=== PATIENT | female | born 1955 | race Caucasian/White ===

== ENCOUNTER → 2017-06-20 | Outpatient (CLI) | payer OTHER ==
--- NOTE | 2017-06-20 21:35 | CT ---
EXAMINATION TYPE: CT chest wo con DATE OF EXAM: 06/20/2017 COMPARISON: NONE HISTORY: Patient complains of double vision. Rule out myasthenia gravis. CT DLP: 659 mGycm. Automated Exposure Control for Dose Reduction was Utilized. TECHNIQUE: CT scan of the thorax is performed without IV contrast. FINDINGS: LUNGS: There is limited right greater than left bibasilar linear scarring and/or atelectasis otherwis e lungs are clear. There is no suspicious parenchymal nodule or mass identified. There is no pleural effusion or pneumothorax seen bilaterally. The tracheobronchial tree is patent. MEDIASTINUM: Lack of IV contrast is noted to limit evaluation for mediastinal and especially hilar ad enopathy. There are no definitive greater than 1 cm hilar or mediastinal lymph nodes. There are prom inent but subcentimeter prevascular lymph nodes. No cardiomegaly or pericardial effusion is seen. Mil d coronary artery calcification first diagonal branch is noted on axial image 26. Main pulmonary ronn ry measures 3.4 cm diameter next image 23. Adjacent ascending aorta measures 3.[address] f indings suggestive of underlying pulmonary artery hypertension. No suspicious anterior superior media stinal mass is seen to suggest thymoma. Normal fat is present at this level. Thyroid gland is normal in size, there are 3 calcified nodules right thyroid lobe measuring up to 1.1 cm in long axis. OTHER: Osseous structures are demineralized. Slight S-shaped scoliosis is present. There is hemangio ma involving right T11 vertebra. There is multilevel spurring and disc space narrowing throughout the visualized spine. There is mild chronic compression type fracture deformity at T5 level. IMPRESSION: No suspicious anterior superior mediastinal mass to suggest thymoma.
== END | disposition home or self-care (01) ==
LOC: RADCTMAIN 19:26
PROVIDERS: ATTEND Psychiatry & Neurology Neurology
DX: G70.01 Myasthenia gravis with (acute) exacerbation (principal)
CPT/HCPCS: 71250

== ENCOUNTER → 2017-08-15 | Outpatient (CLI) | payer BC ==
--- NOTE | 2017-08-16 08:32 | MM ---
Reason for exam: screening (asymptomatic). Last mammogram was performed 1 year and 2 months ago. History: Patient is postmenopausal and had first child at age 33. Physical Findings: A clinical breast exam by your physician is recommended on an annual basis and results should be correlated with mammographic findings. MG Screening Mammo w CAD Bilateral CC, MLO, and XCCL view(s) were taken. Prior study comparison: June 24, 2016, bilateral MG screening mammo w CAD. June 23, 2015, bilateral MG screening mammo w CAD. May 29, 2014, bilateral MG screening mammo w CAD. There are scattered fibroglandular densities. There are benign appearing round grouped bilateral calcifications. There is no discrete abnormality. ASSESSMENT: Benign, BI-RAD 2 RECOMMENDATION: Routine screening mammogram of both breasts in 1 year.
== END | disposition home or self-care (01) ==
LOC: RADMAMWWP 07:36
PROVIDERS: ATTEND Obstetrics & Gynecology
DX: Z12.31 Encounter for screening mammogram for malignant neoplasm of breast (principal)
CPT/HCPCS: 77067

== ENCOUNTER → 2017-08-15 | Outpatient (CLI) | payer BC ==
[2017-08-15 09:17] LABS: Blood Urea Nitrogen 23 mg/dL (7-17)
== END | disposition home or self-care (01) ==
LOC: LABWHC1 08:19
PROVIDERS: ATTEND Psychiatry & Neurology Neurology
DX: H46.9 Unspecified optic neuritis (principal); H53.2 Diplopia; M54.2 Cervicalgia
CPT/HCPCS: 36415; 82565; 84520

== ENCOUNTER → 2017-08-15 | Outpatient (CLI) | payer BC ==
--- NOTE | 2017-08-15 09:19 | BD ---
EXAMINATION TYPE: MG DEXA axial skeleton. DATE OF EXAM: 08/15/2017 CLINICAL HISTORY: M85.80 OTHER SPECIFIED DISORDERS OF BONE Height: 61.75 Weight: 280 FRAX RISK QUESTIONS: Alcohol (3 or more units per day): no Family History (Parent hip fracture): mother fractured her pelvis Glucocorticoids (More than 3mos): no (Ex: prednisone, prednisolone, methylprednisolone, dexamethasone, and hydrocortisone). History of Fracture in Adulthood: no Secondary Osteoporosis: 1. Type 1 Diabetes: no, type II 2. Hyperthyroidism: unsure 3. Menopause before 45: no 4. Malnutrition: no 5. Chronic liver disease: no Rheumatoid Arthritis: no Current Tobacco Use: no RISK FACTORS HISTORY OF: Family History of Osteoporosis: unsure Active: yes Diet low in dairy products/other sources of calcium: no Postmenopausal woman: yes Take estrogen and/or progesterone medications: no Lost more than 2 inches in height since high school: no Frequent falls: no Poor Health: no Hyperparathyroidism: no Adrenal Insufficiency: no MEDICATIONS: Prednisone or other steroids: yes How Long: treatment last week & this week Thyroid Medications: yes Which medication: Levothyroxine How Long: over 5 years Osteoporosis Medications: no Additional Medications: steroid infusion due to vision problem...2 treatments , injections for diabet es EXAM MEASUREMENTS: Bone mineral densitometry was performed using the [employer] System. Bone mineral density as measured about the Lumbar spine is: ----- L1-L4(G/cm2): 1.175 T Score Values are as follows: ----- L2: 0.7 ----- L3: 0.2 ----- L4: -1.6 ----- L1-L4: 0.0 Bone mineral density BASELINE Bone mineral density about the R hip (g/cm2): 0.905 Bone mineral density about the L hip (g/cm2): 0.928 T Score values are as follows: -----R Neck: -1.0 -----L Neck: -0.8 -----R Total: -0.3 -----L Total: -0.4 Bone mineral density BASELINE IMPRESSION: No evidence for osteoporosis or osteopenia. NOTE: T-SCORE=SD OF THE YOUNG ADULT MEAN.
== END | disposition home or self-care (01) ==
LOC: RADBDWWP 07:39
PROVIDERS: ATTEND Internal Medicine
DX: M85.80 Other specified disorders of bone density and structure, unspecified site (principal)
CPT/HCPCS: 77080

== ENCOUNTER → 2017-08-23 | Outpatient (CLI) | payer BC ==
--- NOTE | 2017-08-23 14:19 | MR ---
EXAMINATION TYPE: MR brain/cspine wo/w DATE OF EXAM: 08/23/2017 COMPARISON: NONE HISTORY: Optic neuritis / Diplopia / Cervicalgia all per order. Possible multiple sclerosis with doub le vision for 6 months per patient. TECHNIQUE: Multiplanar, multisequence images of the cervical spine, brain and brainstem are all performed withou t and with IV contrast, utilizing 13 mL intravenous Gadavist gadolinium contrast is administered intr avenously. Demyelinating disease protocol with additional Sagittal Flair sequence of brain and brain stem and PD sagittal sequence of cervical spine all performed. FINDINGS: BRAIN: T2 Lesions Present : Yes Approximate Number of Lesions: Approximately 10-15 Locations Identified : Scattered deep and periventricular. No infratentorial lesions. Size of Reference Lesion(s): 1. 0.6 cm x 0.5 cm x 0.5 cm on axial image 20 and sagittal image 25 right frontal coronal radiata le som. Enhancing Lesion(s) Present: No T1 Hypointense Lesion(s) Present: No Change from Prior: N/A Diffusion weighted images demonstrate no evidence of a recent infarct or other diffusion abnormality. There is no worrisome extra-axial fluid collection. The ventricular system and cisternal spaces ar e normal in size and appearance. The brain volume is age appropriate. Midline structures demonstrate normal morphology. Suprasellar cistern is maintained. The craniocervi jus junction appears within normal limits. Post contrast images demonstrate no abnormal enhancement. There is tortuous course to the distal left vertebral artery. The dural venous sinuses appear patent . The globes are somewhat distorted by artifact. No definitive suspicious enhancement along course of optic nerves is seen. Visualized portion of paranasal sinuses is clear. IMPRESSION: Mild nonspecific white matter changes as detailed above. No suspicious enhancing lesions are seen. C-SPINE: FINDINGS: Coronal images show slight levoconvex scoliotic curvature centered in the upper thoracic sp ine. Sagittal images of the cervical spine show the craniocervical junction to appear within normal l imits. The cervical and upper thoracic spinal cord is normal in course, caliber, and signal. Verteb ral alignment is satisfactory on sagittal images. The vertebral body heights are normal. There is mo derate to advanced disc space narrowing C5-C6 level and mild to moderate disc space narrowing C4-C5 l evel . Small posterior disc herniations are seen at these levels on sagittal images. Note is made of mild to moderate superior plate height loss T4 level without suspicious edema presumed chronic and sm all hemangioma at superior T3 vertebra. Mild to moderate anterior spurring mid to lower cervical spin e is present. No suspicious enhancement is identified. Axial images show the C2-C3 and C3-C4 levels to appear within normal limits. Axial images at C4-C5 level show broad-based right paracentral disc protrusion effacing anterolateral thecal sac, bilateral neural foramina are patent. Axial images at C5-C6 level show broad-based posterior disc protrusion effacing anterior thecal sac w ith asymmetric mild left-sided neural foraminal narrowing due to marginal spur disc complex. Right-si ded neural foramen is patent. Axial images at C6-C7 and C7-T1 levels are felt within normal limits. There are some tortuous medial course to the carotid arteries noted bilaterally. IMPRESSION: Some multilevel degenerative changes most prominent in the mid cervical spine as detailed above. No abnormal cord signal or enhancement is noted.
== END ==
LOC: RADMRIMAIN 12:47
PROVIDERS: ATTEND Psychiatry & Neurology Neurology
DX: H46.9 Unspecified optic neuritis (principal); H53.2 Diplopia; M54.2 Cervicalgia; M50.321 Other cervical disc degeneration at C4-C5 level
CPT/HCPCS: 70553; 72156; A9581

== ENCOUNTER 2017-09-11 10:19 | Emergency (ER) | payer BC ==
[2017-09-11 10:53] LABS: Glucose,Whole Blood 98 mg/dL (75-99)
--- NOTE | 2017-09-11 11:07 | ED ---
Neuro HPI - General Chief Complaint: Neuro Symptoms/Deficit Stated Complaint: slurred speech Time Seen by Provider: 09/11/17 10:32 Source: patient Mode of arrival: ambulatory Limitations: no limitations - History of Present Illness Is the patient presenting with stroke symptoms?: No Initial Comments: This is a 62-year-old female with a history of myasthenia gravis who presents emergency department for slurred speech that has been intermittent for the last couple of weeks. The patient states that the slurred speech seems to be made worse throughout the day as she has been speaking more and better after she rests. She states that feels similar to when she was diagnosed with myasthenia gravis back in the summer of 2016. She states that that that time she was having intermittent double vision. She was started on Mestinon which mildly improved her symptoms however recently underwent a weeks worth of IV steroid infusions which completely resolved her symptoms. She states that she has no ocular complaints at this time. States that she just had slurred speech intermittently. She called her neurologist yesterday and left a message. When they found the message this morning and hurt her slurred speech they advised to come to the emergency department. Patient states that she does not have slurred speech currently. She denies any focal weakness in her arms or legs. No focal numbness. Denies any other acute complaints at this time. - Related Data Home Medications: Home Medications Medication Instructions Recorded Confirmed Aspirin EC [Ecotrin] 81 mg PO HS 11/12/15 09/11/17 Multivitamins, Thera [Multivitamin] 2 tab PO DAILY 11/12/15 09/11/17 Losartan Potassium 100 mg PO DAILY 11/13/15 09/11/17 Lysine 1,000 mg PO DAILY 11/13/15 09/11/17 Methylsulfonylmethane [MSM] 5,000 mg PO DAILY 11/13/15 09/11/17 Pioglitazone [Actos] 30 mg PO DAILY 11/13/15 09/11/17 metFORMIN HCL [Glucophage] 1,000 mg PO HS 11/13/15 09/11/17 Garlic Odorless 1000mg 5,000 mg PO DAILY 09/11/17 09/11/17 Glimepiride [Amaryl] 2 mg PO AC-BID 09/11/17 09/11/17 Insulin Glargine,Hum.rec.anlog 50 unit SQ HS 09/11/17 09/11/17 [Lantus Solostar] Levothyroxine Sodium [Synthroid] 25 mcg PO DAILY 09/11/17 09/11/17 Pyridostigmine [place] [Mestinon] 60 mg PO TID 09/11/17 09/11/17 Pyridostigmine [place] [Mestinon] 180 mg PO HS 09/11/17 09/11/17 Super Biotin 5000mcg 5,000 mcg PO DAILY 09/11/17 09/11/17 Super C-1000 Complex 1 tab PO DAILY 09/11/17 09/11/17 Allergies/Adverse Reactions: Allergies Allergy/AdvReac Type Severity Reaction Status Date / Time No Known Allergies Allergy Verified 09/11/17 11:10 Review of Systems ROS Statement: Those systems with pertinent positive or pertinent negative responses have been documented in the HPI. ROS Other: All systems not noted in ROS Statement are negative. General Exam - General Exam Comments Initial Comments: Constitutional: Awake alert Appears comfortable Head: Normocephalic atraumatic Eyes: no conjunctival injection No scleral icterus EOMI Neck: No JVD Supple Heart: Regular rate rhythm normal S1-S2 no murmurs Lungs: Clear to auscultation bilaterally No wheezing No rales Abdomen: Soft nondistended nontender Extremities: Non edematous DP pulses intact Radial pulses intact Neuro: A&Ox3, cranial nerves II through XII are grossly intact, 5 out of 5 strength in upper and lower extremities bilaterally, sensation intact to light touch in all extremities, no ataxia with finger-nose or heel to tyler testing No focal neurologic deficits Psych: Appropriate mood and affect Limitations: no limitations Stroke MDM - Lab Data Result diagrams: 09/11/17 11:00 09/11/17 11:00 Lab Results 09/11/17 09/11/17 09/11/17 Range/Units 10:47 11:00 11:00 WBC 5.1 (3.8-10.6) k/uL RBC 4.27 (3.80-5.40) m/uL Hgb 12.5 (11.4-16.0) gm/dL Hct 38.9 (34.0-46.0) % MCV 91.1 (80.0-100.0) fL MCH 29.3 (25.0-35.0) pg MCHC 32.2 (31.0-37.0) g/dL RDW 14.0 (11.5-15.5) % Plt Count 243 (150-450) k/uL Neutrophils % 70 % Lymphocytes % 14 % Monocytes % 7 % Eosinophils % 5 % Basophils % 0 % Neutrophils # 3.6 (1.3-7.7) k/uL Lymphocytes # 0.7 L (1.0-4.8) k/uL Monocytes # 0.4 (0-1.0) k/uL Eosinophils # 0.2 (0-0.7) k/uL Basophils # 0.0 (0-0.2) k/uL PT (9.0-12.0) sec INR (<1.2) APTT (22.0-30.0) sec Sodium 145 (137-145) mmol/L Potassium 4.1 (3.5-5.1) mmol/L Chloride 112 H (98-107) mmol/L Carbon Dioxide 26 (22-30) mmol/L Anion Gap 7 mmol/L BUN 14 (7-17) mg/dL Creatinine 0.60 (0.52-1.04) mg/dL Est GFR (MDRD) Af Amer >60 (>60 ml/min/1.73 sqM) Est GFR (MDRD) Non-Af >60 (>60 ml/min/1.73 sqM) Glucose 85 (74-99) mg/dL POC Glucose (mg/dL) 98 (75-99) mg/dL POC Glu Rectifying Attendant ID McDaid, Mohini Calcium 9.3 (8.4-10.2) mg/dL Total Bilirubin 0.4 (0.2-1.3) mg/dL AST 17 (14-36) U/L ALT 28 (9-52) U/L Alkaline Phosphatase 53 (38-126) U/L Total Protein 6.2 L (6.3-8.2) g/dL Albumin 3.5 (3.5-5.0) g/dL 09/11/17 Range/Units 11:00 WBC (3.8-10.6) k/uL RBC (3.80-5.40) m/uL Hgb (11.4-16.0) gm/dL Hct (34.0-46.0) % MCV (80.0-100.0) fL MCH (25.0-35.0) pg MCHC (31.0-37.0) g/dL RDW (11.5-15.5) % Plt Count (150-450) k/uL Neutrophils % % Lymphocytes % % Monocytes % % Eosinophils % % Basophils % % Neutrophils # (1.3-7.7) k/uL Lymphocytes # (1.0-4.8) k/uL Monocytes # (0-1.0) k/uL Eosinophils # (0-0.7) k/uL Basophils # (0-0.2) k/uL PT 10.3 (9.0-12.0) sec INR 1.0 (<1.2) APTT 22.4 (22.0-30.0) sec Sodium (137-145) mmol/L Potassium (3.5-5.1) mmol/L Chloride (98-107) mmol/L Carbon Dioxide (22-30) mmol/L Anion Gap mmol/L BUN (7-17) mg/dL Creatinine (0.52-1.04) mg/dL Est GFR (MDRD) Af Amer (>60 ml/min/1.73 sqM) Est GFR (MDRD) Non-Af (>60 ml/min/1.73 sqM) Glucose (74-99) mg/dL POC Glucose (mg/dL) (75-99) mg/dL POC Glu Rectifying Attendant ID Calcium (8.4-10.2) mg/dL Total Bilirubin (0.2-1.3) mg/dL AST (14-36) U/L ALT (9-52) U/L Alkaline Phosphatase (38-126) U/L Total Protein (6.3-8.2) g/dL Albumin (3.5-5.0) g/dL - Medical Decision Making This is a 62-year-old female who presents emergency department for intermittent episodes of slurred speech. She was evaluated with CT which was unremarkable. Labwork was unremarkable. I spoke with Dr. Quinones who is her neurologist and he suspects that this is worsening of her myasthenia gravis. He recommended outpatient IVIG infusions. I told the patient to call the office to get the set up. She stated that she understood and agreed. Told to return if she had any worsening symptoms especially respiratory symptoms. All questions were answered. 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 Past Anesthesia/Blood Transfusion Reactions: No Reported Reaction Past Psychological History: No Psychological Hx Reported Smoking Status: Never smoker Past Alcohol Use History: Rare Past Drug Use History: None Reported - Past Family History Mother Family Medical History: No Reported History Course Vital Signs 09/11/17 09/11/17 09/11/17 10:25 10:56 13:04 Temperature 97.7 F 98.2 F Pulse Rate 86 75 77 Respiratory 18 18 16 Rate Blood Pressure 150/75 137/64 142/66 O2 Sat by Pulse 97 96 Oximetry - Reevaluation(s) Reevaluation #1: 09/11/17 11:07 EKG showing normal sinus rhythm with a rate of 72. No abnormal 7 changes or T- wave inversions. QTC is 400. Other intervals normal. No ectopy. Disposition Clinical Impression: Myasthenia gravis Disposition: HOME SELF-CARE Condition: Stable Instructions: Myasthenia Gravis (ED) Additional Instructions: Call Dr. Quinones's office to set up IVIG infusions. Referrals: Fidencio Guerrero MD [Primary Care Provider] - 1-2 days Eligio Quinones MD [STAFF PHYSICIAN] - 1-2 days
[2017-09-11 11:31] LABS: Basophils % (A) 0 %; Eosinophils # (A) 0.2 k/uL (0-0.7); Eosinophils % (A) 5 %; HCT 38.9 % (34.0-46.0); HGB 12.5 gm/dL (11.4-16.0); Lymphocytes # (A) 0.7 k/uL (1.0-4.8); Lymphocytes % (A) 14 %; MCH 29.3 pg (25.0-35.0); MCHC 32.2 g/dL (31.0-37.0); MCV 91.1 fL (80.0-100.0); Mean Platelet Volume 6.8; Monocytes # (A) 0.4 k/uL (0-1.0); Monocytes % (A) 7 %; Neutrophils # (A) 3.6 k/uL (1.3-7.7); Neutrophils % (A) 70 %; Platelet Count 243 k/uL (150-450); RBC 4.27 m/uL (3.80-5.40); WBC 5.1 k/uL (3.8-10.6)
--- NOTE | 2017-09-11 11:46 | CT ---
EXAMINATION TYPE: CT brain wo con DATE OF EXAM: 09/11/2017 HISTORY: Patient complains of intermittent episodes of slurred speech. CT DLP: 742.7 mGycm. Automated Exposure Control for Dose Reduction was Utilized. TECHNIQUE: CT scan of the head is performed without contrast. COMPARISON: MRI brain August 23, 2017. FINDINGS: There is no acute intracranial hemorrhage or midline shift identified. Ventricles and sul ci are normal in size for patient's age. There is low-attenuation in the periventricular white matter consistent with chronic small vessel ischemic change. The globes are intact and the visualized sinu ses are clear. IMPRESSION: No acute intracranial hemorrhage or midline shift. There is mild nonspecific white fely er changes presumed on basis of product of chronic small vessel ischemic change redemonstrated.
[2017-09-11 11:53] LABS: ALT 28 U/L (9-52); AST 17 U/L (14-36); Albumin 3.5 g/dL (3.5-5.0); Alkaline Phosphatase 53 U/L (38-126); Anion Gap 7 mmol/L; Blood Urea Nitrogen 14 mg/dL (7-17); Calcium 9.3 mg/dL (8.4-10.2); Carbon Dioxide 26 mmol/L (22-30); Chloride 112 mmol/L (98-107); Glucose 85 mg/dL (74-99); Potassium 4.1 mmol/L (3.5-5.1); Sodium 145 mmol/L (137-145); Total Bilirubin 0.4 mg/dL (0.2-1.3); Total Protein 6.2 g/dL (6.3-8.2)
[2017-09-11 12:18] LABS: Partial Thromboplastin Time 22.4 sec (22.0-30.0); Prothrombin Time 10.3 sec (9.0-12.0)
[2017-09-11 13:04] VITALS: BP 142/66; PULSE 77; RESP 16; TEMP 98.2
== END 2017-09-11 13:04 | disposition home or self-care (01) ==
LOC: EC 10:19
DX: G70.00 Myasthenia gravis without (acute) exacerbation (principal); E11.9 Type 2 diabetes mellitus without complications; E07.9 Disorder of thyroid, unspecified; Z79.84 Long term (current) use of oral hypoglycemic drugs; Z79.4 Long term (current) use of insulin; Z79.82 Long term (current) use of aspirin; Z79.899 Other long term (current) drug therapy
CPT/HCPCS: 36415; 70450; 80053; 85025; 85610; 85730; 93005; 99284

== ENCOUNTER 2018-07-15 12:16 | Emergency (ER) | payer BC ==
[2018-07-15 12:39] VITALS: BP 152/80; RESP 18; TEMP 98.3
[2018-07-15] MEDS ORDERED: IPRATROPIUM-ALBUTEROL 3 ML NEB INHALATION STA (12:49)
--- NOTE | 2018-07-15 12:53 | ED ---
General Adult HPI - General Chief complaint: Upper Respiratory Infection Stated complaint: Congestion, Wheezing Time Seen by Provider: 07/15/18 12:35 Source: patient, RN notes reviewed Mode of arrival: ambulatory Limitations: no limitations - History of Present Illness Initial comments: This is a 62-year-old female presents emergency Department complaining of wheezing. Patient states over the last few days she's been coughing and coughing up quite a bit of sputum. Patient states today she noticed the wheezing so she's decided come to the emergency department to be evaluated. Patient does have past medical history significant for myasthenia gravis and diabetes. Patient denies any fever or chills. Patient denies any chest pain or palpitations. Patient denies any abdominal pain patient denies nausea vomiting diarrhea. Patient denies any muscle weakness or visual disturbance. Patient denies lightheadedness dizziness or near syncopal episode. - Related Data Home Medications Medication Instructions Recorded Confirmed Multivitamins, Thera [Multivitamin] 2 tab PO DAILY 11/12/15 07/15/18 Lysine 1,000 mg PO DAILY 11/13/15 07/15/18 Methylsulfonylmethane [MSM] 5,000 mg PO DAILY 11/13/15 07/15/18 metFORMIN HCL [Glucophage] 1,000 mg PO HS 11/13/15 07/15/18 Garlic Odorless 1000mg 5,000 mg PO DAILY 09/11/17 07/15/18 Glimepiride [Amaryl] 2 mg PO BID 09/11/17 07/15/18 Levothyroxine Sodium [Synthroid] 25 mcg PO DAILY 09/11/17 07/15/18 Super Biotin 5000mcg 5,000 mcg PO DAILY 09/11/17 07/15/18 Super C-1000 Complex 1 tab PO DAILY 09/11/17 07/15/18 Benzonatate [Benzonatate [place]] 200 mg PO TID PRN 07/15/18 07/15/18 Cholecalciferol (Vitamin D3) 2,000 unit PO DAILY 07/15/18 07/15/18 [Vitamin D3] Losartan Potassium 100 mg PO DAILY 07/15/18 07/15/18 Mycophenolate Mofetil [Cellcept] 1,000 mg PO BID 07/15/18 07/15/18 Ranitidine HCl [Zantac] 150 mg PO BID 07/15/18 07/15/18 predniSONE 5 mg PO QAM 07/15/18 07/15/18 predniSONE 10 mg PO QAM 07/15/18 07/15/18 Previous Rx's Medication Instructions Recorded Albuterol Inhaler [Ventolin Hfa 1 - 2 puff INHALATION Q6HR PRN #2 07/15/18 Inhaler] puff Azithromycin [Zithromax Tri-Genaro] 500 mg PO DAILY #3 tab 07/15/18 Allergies Allergy/AdvReac Type Severity Reaction Status Date / Time No Known Allergies Allergy Verified 07/15/18 13:00 Review of Systems ROS Statement: Those systems with pertinent positive or pertinent negative responses have been documented in the HPI. ROS Other: All systems not noted in ROS Statement are negative. 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 Patient is nontoxic and well- hydrated and is in mild distress. ENT: Neck is soft and supple. No significant lymphadenopathy is noted. Oropharynx is clear. Moist mucous membranes. Neck has full range of motion without eliciting any pain. EYES: The sclera were anicteric and conjunctiva were pink and moist. Extraocular movements were intact and pupils were equal round and reactive to light. Eyelids were unremarkable. PULMONARY: Patient has extra wheezing diffusely. CARDIOVASCULAR: There is a regular rate and rhythm without any murmurs gallops or rubs. SKIN: Skin is clear with no lesions or rashes and otherwise unremarkable. NEUROLOGIC: Patient is alert and oriented x3. Cranial nerves II through XII are grossly intact. Motor and sensory are also intact. Normal speech, volume and content. Symmetrical smile. MUSCULOSKELETAL: Normal extremities with adequate strength and full range of motion. LYMPHATICS: No significant lymphadenopathy is noted PSYCHIATRIC: Normal psychiatric evaluation. Limitations: no limitations Course Vital Signs 07/15/18 07/15/18 07/15/18 12:35 13:15 13:24 Temperature 98.3 F Pulse Rate 100 100 108 H Respiratory 18 Rate Blood Pressure 152/80 O2 Sat by Pulse 95 Oximetry Medical Decision Making - Medical Decision Making Patient's chest x-ray shows a new right lower lobe infiltrate. I started the patient on Rocephin emergency department I sent the patient home on Zithromax. Disposition Clinical Impression: Pneumonia, Acute bronchospasm Disposition: HOME SELF-CARE Condition: Good Prescriptions: Albuterol Inhaler [Ventolin Hfa Inhaler] 1 - 2 puff INHALATION Q6HR PRN #2 puff PRN Reason: Difficulty breathing Azithromycin [Zithromax Tri-Genaro] 500 mg PO DAILY #3 tab Is patient prescribed a controlled substance at d/c from ED?: No Referrals: Fidencio Guerrero MD [Primary Care Provider] - 1-2 days Time of Disposition: 13:58
[2018-07-15 13:24] VITALS: PULSE 108
--- NOTE | 2018-07-15 13:46 | XR ---
EXAMINATION TYPE: XR chest 2V DATE OF EXAM: 07/15/2018 COMPARISON: CT chest June 20, 2017 HISTORY: Cough and difficulty breathing for 2 days. TECHNIQUE: Frontal and lateral views of the chest are obtained. FINDINGS: There is right basilar opacity. Left lung is clear. No pleural effusion or pneumothorax i s seen bilaterally The cardiac silhouette size is stable and upper limits of normal. Multilevel spurr ing in the mid to lower thoracic spine is redemonstrated. IMPRESSION: New right basilar atelectasis and/or infiltrate.
[2018-07-15] MEDS ORDERED: cefTRIAXone 1,000 MG VIAL (IM USE) IM STA ×2 (13:53→14:37)
== END 2018-07-15 14:46 | disposition home or self-care (01) ==
LOC: EC 12:16
DX: J18.9 Pneumonia, unspecified organism (principal); J98.01 Acute bronchospasm; E11.9 Type 2 diabetes mellitus without complications; G70.00 Myasthenia gravis without (acute) exacerbation; Z79.52 Long term (current) use of systemic steroids; Z79.84 Long term (current) use of oral hypoglycemic drugs; Z79.899 Other long term (current) drug therapy; Z53.8 Procedure and treatment not carried out for other reasons
CPT/HCPCS: 94640; 71046; 99283; 96372; J0696

== ENCOUNTER → 2018-08-16 | Outpatient (CLI) | payer BC ==
--- NOTE | 2018-08-19 12:45 | MM ---
Reason for exam: screening (asymptomatic). Last mammogram was performed 1 year ago. History: Patient is postmenopausal and had first child at age 33. MG Screening Mammo w CAD Bilateral CC, MLO, and XCCL view(s) were taken. Prior study comparison: August 15, 2017, bilateral MG screening mammo w CAD. June 24, 2016, bilateral MG screening mammo w CAD. There are scattered fibroglandular densities. No discrete abnormality. No significant changes when compared with prior studies. ASSESSMENT: Negative, BI-RAD 1 RECOMMENDATION: Routine screening mammogram of both breasts in 1 year.
== END | disposition home or self-care (01) ==
LOC: RADMAMWWP 07:06
PROVIDERS: ATTEND Obstetrics & Gynecology
DX: Z12.31 Encounter for screening mammogram for malignant neoplasm of breast (principal)
CPT/HCPCS: 77067

== ENCOUNTER 2018-11-01 14:59 | Emergency (ER) | payer BC ==
[2018-11-01 15:20] VITALS: TEMP 98.4
--- NOTE | 2018-11-01 18:10 | ED ---
General Adult HPI - General Chief complaint: ENT Stated complaint: FB in throat Time Seen by Provider: 11/01/18 17:59 Source: patient, RN notes reviewed, old records reviewed Mode of arrival: ambulatory - History of Present Illness Initial comments: 63-year-old female presented for evaluation of foreign body in her esophagus. Patient states she was eating a chicken sandwich, had foreign body sensation and inability to swallow. No difficulty breathing, no cough. She is unable to swallow any liquids after this initial event. Patient states that over the past year she has had several episodes of momentary esophageal foreign body. The symptoms resolved spontaneously without treatment in the past. She does have history of myasthenia gravis. No chest pain. No dyspnea. - Related Data Home Medications Medication Instructions Recorded Confirmed Multivitamins, Thera [Multivitamin] 2 tab PO DAILY 11/12/15 07/15/18 Lysine 1,000 mg PO DAILY 11/13/15 07/15/18 Methylsulfonylmethane [MSM] 5,000 mg PO DAILY 11/13/15 07/15/18 metFORMIN HCL [Glucophage] 1,000 mg PO HS 11/13/15 07/15/18 Garlic Odorless 1000mg 5,000 mg PO DAILY 09/11/17 07/15/18 Glimepiride [Amaryl] 2 mg PO BID 09/11/17 07/15/18 Levothyroxine Sodium [Synthroid] 25 mcg PO DAILY 09/11/17 07/15/18 Super Biotin 5000mcg 5,000 mcg PO DAILY 09/11/17 07/15/18 Super C-1000 Complex 1 tab PO DAILY 09/11/17 07/15/18 Benzonatate [Benzonatate Perle] 200 mg PO TID PRN 07/15/18 07/15/18 Cholecalciferol (Vitamin D3) 2,000 unit PO DAILY 07/15/18 07/15/18 [Vitamin D3] Losartan Potassium 100 mg PO DAILY 07/15/18 07/15/18 Mycophenolate Mofetil [Cellcept] 1,000 mg PO BID 07/15/18 07/15/18 Ranitidine HCl [Zantac] 150 mg PO BID 07/15/18 07/15/18 predniSONE 5 mg PO QAM 07/15/18 07/15/18 predniSONE 10 mg PO QAM 07/15/18 07/15/18 Previous Rx's Medication Instructions Recorded Albuterol Inhaler [Ventolin Hfa 1 - 2 puff INHALATION Q6HR PRN #2 07/15/18 Inhaler] puff Azithromycin [Zithromax Tri-Genaro] 500 mg PO DAILY #3 tab 07/15/18 Allergies Allergy/AdvReac Type Severity Reaction Status Date / Time No Known Allergies Allergy Verified 11/01/18 15:19 Review of Systems ROS Statement: Those systems with pertinent positive or pertinent negative responses have been documented in the HPI. ROS Other: All systems not noted in ROS Statement are negative. 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 History of Any Multi-Drug Resistant Organisms: None Reported Additional Past Surgical History / Comment(s): COLONOSCOPY, ASPIRATION OF GOITER., thymectomy Past Anesthesia/Blood Transfusion Reactions: No Reported Reaction Past Psychological History: No Psychological Hx Reported Smoking Status: Never smoker Past Alcohol Use History: Rare Past Drug Use History: None Reported - Past Family History Mother Family Medical History: No Reported History General Exam General appearance: alert, in no apparent distress Head exam: Present: atraumatic, normocephalic Eye exam: Present: normal appearance, PERRL ENT exam: Present: normal exam Neck exam: Present: normal inspection Respiratory exam: Present: normal lung sounds bilaterally. Absent: respiratory distress, wheezes, stridor Cardiovascular Exam: Present: regular rate, normal rhythm GI/Abdominal exam: Present: soft. Absent: distended, tenderness, guarding Extremities exam: Present: normal inspection, normal capillary refill. Absent: pedal edema Neurological exam: Present: alert, oriented X3, CN II-XII intact. Absent: motor sensory deficit Psychiatric exam: Present: normal affect, normal mood Skin exam: Present: warm, dry, intact. Absent: cyanosis, diaphoretic Course Vital Signs 11/01/18 15:17 Temperature 98.4 F Pulse Rate 115 H Respiratory 20 Rate Blood Pressure 162/87 O2 Sat by Pulse 97 Oximetry Medical Decision Making - Medical Decision Making 63-year-old female presenting with concern for esophageal foreign body. At the time my evaluation, patient believes her symptoms may have resolved. She is given barbara kamla in the emergency prompt. She is able to swallow this without difficulty. No stridor, no respiratory distress, she is able to drink without any issues. She will be given GI follow-up for further evaluation. She will return with worsening or changing symptoms. Disposition Clinical Impression: Esophageal obstruction due to food impaction Disposition: HOME SELF-CARE Condition: Good Instructions (If sedation given, give patient instructions): Esophageal Foreign Body (ED) Is patient prescribed a controlled substance at d/c from ED?: No Referrals: Fidencio Guerrero MD [Primary Care Provider] - 1-2 days Danilo Perdomo MD [STAFF PHYSICIAN] - 1-2 days Time of Disposition: 18:10
[2018-11-01 18:38] VITALS: BP 158/82; PULSE 107; RESP 16
== END 2018-11-01 18:37 | disposition home or self-care (01) ==
LOC: EC 14:59
DX: T18.128A Food in esophagus causing other injury, initial encounter (principal); E11.9 Type 2 diabetes mellitus without complications; E07.9 Disorder of thyroid, unspecified; G70.00 Myasthenia gravis without (acute) exacerbation; Z79.52 Long term (current) use of systemic steroids; Z79.84 Long term (current) use of oral hypoglycemic drugs; Z79.890 Hormone replacement therapy; Z79.899 Other long term (current) drug therapy
CPT/HCPCS: 99283

== ENCOUNTER → 2019-01-03 | Outpatient (CLI) | payer BC ==
--- NOTE | 2019-01-03 08:51 | FL ---
EXAMINATION TYPE: FL barium swallow DATE OF EXAM: 01/03/2019 CLINICAL HISTORY: Dysphasia TECHNIQUE: A double contrast esophagram is performed utilizing air and barium. A total of 30 second s of fluoroscopic time was utilized during procedure. COMPARISON: None FINDINGS: Approximately 30 seconds of fluoroscopy and 21 images submitted. Barium was swallowed without difficulty and passed and the esophagus without delay. There were occasi onal tertiary contractions of esophagus compatible dysmotility. Small hiatal hernia with mild gastroe sophageal reflux. No filling defects or obstruction. IMPRESSION: 1. Small hiatal hernia with mild gastroesophageal reflux 2. Dysmotility
== END | disposition home or self-care (01) ==
LOC: RADUSWWP 07:48
PROVIDERS: ATTEND Internal Medicine
DX: K21.9 Gastro-esophageal reflux disease without esophagitis (principal); K44.9 Diaphragmatic hernia without obstruction or gangrene; K22.4 Dyskinesia of esophagus
CPT/HCPCS: 74220

== ENCOUNTER → 2019-01-10 | Day surgery (SDC) | payer BC ==
[2019-01-07 17:25] VITALS: BMI 49.4
[~2019-01-10] MED LIST: KETAMINE 10 MG/ML 20 ML VIAL ONE; LACTATED RINGERS 1,000 ML IV SCH; LIDOCAINE 1% 20 ML VIAL (10MG/ML) FOR IV START INTRADERMA PRN; LIDOCAINE 1% INJ 10MG/ML (20 ML MDV) ONE; MIDAZOLAM 2 MG/2 ML VIAL ONE; PROPOFOL 10 MG/ML 20 ML VIAL IV ONE
[2019-01-10 07:54] VITALS: TEMP 98.2
[2019-01-10 08:12] LABS: Glucose,Whole Blood 77 mg/dL (75-99)
[2019-01-10 08:40] VITALS: RESP 18
--- NOTE | 2019-01-10 08:41 | P.PCN ---
Date of Procedure: 01/10/19 Description of Procedure: BRIEF HISTORY: Patient is a 63-year-old, pleasant, female patient with a medical history significant for hypertension, dyslipidemia, myasthenia gravis who presented to the clinic with complaints of difficulty swallowing for approximate 2 weeks with reports of a sensation of food getting stuck in her esophagus. She also reported odynophagia at that time. She did have a history of reflux which have been occurring daily for approximately 6 months. She had been on ranitidine 150 mg twice daily with no improvement of her symptoms. She denies any regular NSAID use. Last colonoscopy was over 10/2015 with no prior EGD reported. PROCEDURE PERFORMED: Esophagogastroduodenoscopy with biopsy. PREOPERATIVE DIAGNOSIS: GERD, esophageal dysphagia. ESTIMATED BLOOD LOSS: Minimal. IV sedation per anesthesia. PROCEDURE: After informed consent was obtained, the patient was brought into the endoscopy unit. IV sedation was administered by Anesthesia under continuous monitoring. Initially the Olympus GIF-190 video endoscope was inserted into the mouth. Esophagus intubated without any difficulty. It was gradually advanced into the stomach and duodenum and carefully examined. The bulb and the second part of the duodenum appeared normal with biopsies taken. The scope at this time was withdrawn to the stomach, adequately insufflated with air, and upon careful examination, mucosa of the antrum, body, cardia and the fundus appeared grossly normal except for some areas of erythema present in a linear fashion in the antrum and body suggestive of mild gastritis with biopsies taken of the antrum and body. The scope was then withdrawn into the esophagus. A 3 cm hiatal hernia was noted. The GE junction was located at 36 cm from the incisors with biopsies taken. The esophagus appeared normal, with mild esophageal biopsies in the setting of dysphagia. There were no erosions or ulcerations seen and the patient tolerated the procedure well. IMPRESSION: 1. Mild gastritis antrum body, biopsied. 2. Biopsies of the duodenum, GE junction and mid esophagus. RECOMMENDATIONS: The findings of this examination were discussed with the patient and her sister. Continue Prilosec twice daily. Given improvement in patient's symptoms will discuss titrate medication down to once daily. Await pathology from biopsies. Patient has appointment to follow up in the outpatient setting.
[2019-01-10 08:53] VITALS: BP 137/78; PULSE 78
== END ==
LOC: ORWHC2ENDO 07:17
PROVIDERS: ATTEND Internal Medicine
DX: K29.80 Duodenitis without bleeding (principal); K29.50 Unspecified chronic gastritis without bleeding; K21.0 Gastro-esophageal reflux disease with esophagitis; I10 Essential (primary) hypertension; E78.5 Hyperlipidemia, unspecified; E07.9 Disorder of thyroid, unspecified; G70.00 Myasthenia gravis without (acute) exacerbation; E11.9 Type 2 diabetes mellitus without complications; Z79.82 Long term (current) use of aspirin; Z79.890 Hormone replacement therapy; Z79.899 Other long term (current) drug therapy; Z79.52 Long term (current) use of systemic steroids
CPT/HCPCS: 88305; 43239; J2250; J2001; J2704

== ENCOUNTER → 2019-08-27 | Outpatient (CLI) | payer BC ==
--- NOTE | 2019-08-28 11:39 | MM ---
Reason for exam: screening (asymptomatic). Last mammogram was performed 1 year ago. History: Patient is postmenopausal and had first child at age 33. Physical Findings: A clinical breast exam by your physician is recommended on an annual basis and results should be correlated with mammographic findings. MG Screening Mammo w CAD Bilateral CC and MLO view(s) were taken. Prior study comparison: August 16, 2018, bilateral MG screening mammo w CAD. August 15, 2017, bilateral MG screening mammo w CAD. There are scattered fibroglandular densities. No suspicious abnormality. No significant changes when compared with prior studies. ASSESSMENT: Negative, BI-RAD 1 RECOMMENDATION: Routine screening mammogram of both breasts in 1 year.
== END | disposition home or self-care (01) ==
LOC: RADMAMWWP 07:01
PROVIDERS: ATTEND Obstetrics & Gynecology
DX: Z12.31 Encounter for screening mammogram for malignant neoplasm of breast (principal)
CPT/HCPCS: 77067

== ENCOUNTER → 2020-11-12 | Outpatient (CLI) | payer MEDICARE, BC ==
--- NOTE | 2020-11-12 11:25 | MM ---
Reason for exam: screening (asymptomatic). Last mammogram was performed 1 year and 3 months ago. History: Patient is postmenopausal and had first child at age 33. Physical Findings: A clinical breast exam by your physician is recommended on an annual basis and results should be correlated with mammographic findings. MG Screening Mammo w CAD Bilateral CC and MLO view(s) were taken. Prior study comparison: August 27, 2019, bilateral MG screening mammo w CAD. August 16, 2018, bilateral MG screening mammo w CAD. There are scattered fibroglandular densities. There is no discrete abnormality. No significant changes when compared with prior studies. ASSESSMENT: Negative, BI-RAD 1 RECOMMENDATION: Routine screening mammogram of both breasts in 1 year.
== END | disposition home or self-care (01) ==
LOC: RADMAMWWP 06:57
PROVIDERS: ATTEND Obstetrics & Gynecology
DX: Z12.31 Encounter for screening mammogram for malignant neoplasm of breast (principal)
CPT/HCPCS: 77067

== ENCOUNTER → 2021-11-15 | Outpatient (CLI) | payer MEDICARE, BC ==
--- NOTE | 2021-11-16 11:27 | MM ---
Reason for exam: screening (asymptomatic). Last mammogram was performed 1 year ago. History: Patient is postmenopausal and had first child at age 33. Physical Findings: A clinical breast exam by your physician is recommended on an annual basis and results should be correlated with mammographic findings. MG Screening Mammo w CAD Bilateral CC and MLO view(s) were taken. Prior study comparison: November 12, 2020, bilateral MG screening mammo w CAD. August 27, 2019, bilateral MG screening mammo w CAD. There are scattered fibroglandular densities. There are benign appearing round calcifications bilaterally. Focal asymmetry right subareolar upper aspect. ASSESSMENT: Incomplete: need additional imaging evaluation, BI-RAD 0 RECOMMENDATION: Ultrasound of the right breast. [facility] will attempt to contact patient to return for ultrasound.
== END | disposition home or self-care (01) ==
LOC: RADMAMWWP 12:11
PROVIDERS: ATTEND Obstetrics & Gynecology
DX: Z12.31 Encounter for screening mammogram for malignant neoplasm of breast (principal); Z78.0 Asymptomatic menopausal state
CPT/HCPCS: 77067

== ENCOUNTER → 2021-11-16 | Outpatient (CLI) | payer MEDICARE, BC ==
--- NOTE | 2021-11-17 10:53 | USB ---
Reason for exam: additional evaluation requested from abnormal screening. History: Patient is postmenopausal and had first child at age 33. Physical Findings: A clinical breast exam by your physician is recommended on an annual basis and results should be correlated with mammographic findings. US Breast Workup Limited RT Right limited breast ultrasound including focal area of concern, retroareolar and axilla demonstrates a 1.4 x 0.8 x 1.2cm oval, solid, vascular lesion at the posterior nipple. Results were given to the patient verbally at the time of the exam. ASSESSMENT: Suspicious, BI-RAD 4 RECOMMENDATION: Ultrasound core biopsy of the right breast. Called Dr. Knight's office with mammographic findings and has scheduled an appointment for the patient for 12/30/21 at 8:[address] Thomas. Biopsy scheduled for 11/29/21 at 12:30. PRELIMINARY REPORT CALLED AND FAXED TO DR. THOMAS ON 11/17/21.
== END | disposition home or self-care (01) ==
LOC: RADUSWWP 13:04
PROVIDERS: ATTEND Obstetrics & Gynecology
DX: N64.89 Other specified disorders of breast (principal); Z78.0 Asymptomatic menopausal state

== ENCOUNTER → 2022-10-12 | Outpatient (CLI) | payer MEDICARE, BC ==
[~2022-10-12] MED LIST changes: -KETAMINE 10 MG/ML 20 ML VIAL ONE; -LACTATED RINGERS 1,000 ML IV SCH; -LIDOCAINE 1% 20 ML VIAL (10MG/ML) FOR IV START INTRADERMA PRN; -LIDOCAINE 1% INJ 10MG/ML (20 ML MDV) ONE; -MIDAZOLAM 2 MG/2 ML VIAL ONE; -PROPOFOL 10 MG/ML 20 ML VIAL IV ONE; +REGADENOSON 0.4 MG/5 ML SYRINGE IV ONE
--- NOTE | 2022-10-12 12:08 | CA ---
Lexiscan Nuclear Stress Test Report Name: Lisa Dickey Exam Date: 10/12/2022 10:03 Exam Location: [place] Stress Ht (in): 62 Wt (lb): 300 BSA: 2.27 Ordering Phys: Hardy Dubon MD Referring Phys: Hardy Dubon MD Technologist: Avelino Smart Age: 67 Gender: F : 1955 Procedure CPT: Indications: R07.9 ICD-10 Codes: Patient History: Medications: SEE CHART Meds past 24 hrs: Pretest Chest Pain: STRESS TEST Lexiscan Protocol Exercise Duration (min:sec): 02:[address] Depressions (mm): Angina Score: Coyle Score: Resting HR (bpm): 77 Peak HR (bpm): 102 Resting BP (mmHg): 139 / 78 Peak BP (mmHg): 203 / 61 MPHR: 153 Target HR: 130 % MPHR: 67 METS: 1.0 Total Dose: Peak Dose: Atropine: Double Product: 37173 BP Response: Stress Termination: PROTOCOL COMPLETE Stress Symptoms: NO SYMPTOMS Stress Summary: ECG ANALYSIS Resting ECG: Stress ECG: CONCLUSIONS Non-specific EKG changes in response to Lexiscan Please follow-up on the Cardiolite portion Dr. Jean Pierre Salmon MD (Electronically Signed) Final Date: 12 October 2022 12:07
--- NOTE | 2022-10-12 12:26 | NM ---
EXAMINATION TYPE: NM stress lexiscan cardiolite DATE OF EXAM: 10/12/2022 COMPARISON: NONE HISTORY: Chest pain TECHNIQUE: After the intravenous administration of 9.8 mCi Tc 99m Sestamibi - Cardiolite resting SPE CT images acquired 45 minutes post injection. The patient received 0.4mg Lexiscan, 25.8 mCi Tc 99m Sestamibi - Stress images obtained [address] injection FINDINGS: Review of stress and rest SPECT images demonstrates no distinct perfusion abnormality. Gated analysi s shows normal wall motion with an estimated left ventricular ejection fraction of 65 %. IMPRESSION: No scintigraphic evidence for reversible ischemia.
== END | disposition home or self-care (01) ==
LOC: RADNMMAIN 08:20
PROVIDERS: ATTEND Family Medicine
DX: I95.9 Hypotension, unspecified (principal); R07.9 Chest pain, unspecified
CPT/HCPCS: 93017; 78452; A9500

== ENCOUNTER → 2022-12-13 | Outpatient (CLI) | payer MEDICARE, BC ==
--- NOTE | 2022-12-13 20:00 | MM ---
Reason for Exam: Screening (asymptomatic). Last mammogram was performed 1 year(s) and 1 month(s) ago. Patient History: Menarche at age 10. First Full-Term at age 33. Late child-bearing (after 30). Postmenopausal. 11/29/2021, Benign Core Biopsy on the right side. Risk Values: Sylvia 5 year model risk: 3.0%. NCI Lifetime model risk: 10.2%. Prior Study Comparison: 11/12/2020 Bilateral Screening Mammogram, [facility]. 11/15/2021 Bilateral Screening Mammogram, [facility]. 11/29/2021 Right Diagnostic Mammogram, [facility]. Tissue Density: There are scattered fibroglandular densities. Findings: Analyzed By CAD. Fibroglandular tissue is present predominantly in the subareolar region on both sides. Microclip anterior right breast from prior biopsy. There is no suspicious group of microcalcifications or new suspicious mass in either breast. Overall Assessment: Benign, BI-RAD 2 Management: Screening Mammogram of both breasts in 1 year. See note below in regards to patient's increased 5 year Sylvia score. Patient should continue monthly self-breast exams. A clinical breast exam by your physician is recommended on an annual basis. This exam should not preclude additional follow-up of suspicious palpable abnormalities. Note on Sylvia scores and lifetime risk: 1. A Sylvia score greater than 3% is considered moderate risk. If this is the case, consider specialist referral to assess eligibility for a risk reducing agent. 2. If overall lifetime risk for the development of breast cancer is 20% or higher, the patient may qualify for future screening with alternating mammogram and breast MRI. Electronically signed and approved by: Felisa Isaac M.D. Radiologist
== END | disposition home or self-care (01) ==
LOC: RADMAMWWP 06:58
PROVIDERS: ATTEND Family Medicine
DX: Z12.31 Encounter for screening mammogram for malignant neoplasm of breast (principal); Z78.0 Asymptomatic menopausal state
CPT/HCPCS: 77067

== ENCOUNTER 2023-06-27 07:48 | Day surgery (SDC) | payer MEDICARE, BC ==
[2023-06-26 08:30] VITALS: BMI 54.8
[~2023-06-27 07:48] MED LIST changes: +LACTATED RINGERS 1,000 ML IV SCH; -REGADENOSON 0.4 MG/5 ML SYRINGE IV ONE
[2023-06-27 08:13] VITALS: TEMP 98
[2023-06-27 08:28] LABS: Glucose,Whole Blood 89 mg/dL (70-110)
[2023-06-27] MEDS ORDERED: PROPOFOL 10 MG/ML 20 ML VIAL IV ONE (08:46)
--- NOTE | 2023-06-27 09:04 | P.PCN ---
Date of Procedure: 06/27/23 Procedure(s) Performed: BRIEF HISTORY: Patient is a 67-year-old pleasant white female scheduled for an elective colonoscopy as a part of evaluation of prior history of colon polyps. PROCEDURE PERFORMED: Colonoscopy with snare polypectomy. PREOPERATIVE DIAGNOSIS: History of colon polyps. IV sedation per Anesthesia. PROCEDURE: After informed consent was obtained, the patient, was brought into the endoscopy unit. IV sedation was administered by Anesthesia under continuous monitoring. Digital rectal examination was normal. Initially the Olympus CF-160 flexible video colonoscope was then inserted in the rectum, gradually advanced into the cecum without any difficulty. Careful examination was performed as the scope was gradually being withdrawn. Ileocecal valve and the appendiceal orifice were visualized and appeared normal. Prep was excellent. Mucosa of the cecum had a 3 mm, 4 mm and 5 mm polyp that was removed by cold snare polypectomy. In the ascending colon there was another 5 mm polyp that was removed by snare polypectomy. Rest of the, ascending colon, transverse colon, descending colon, sigmoid colon, and rectum appeared normal. Scattered sigmoidal diverticulosis. Retroflexion was performed in the rectum and no lesions were seen. The patient tolerated the procedure well. IMPRESSION: 3 mm, 4 mm and 6 mm cecal polyp status post snare polypectomy 5 mm ascending colon polyp status post polypectomy Scattered left sided diverticulosis RECOMMENDATIONS: Findings of this examination were discussed with the patient as well as a family. She was advised to follow with the biopsy results. If the biopsy reveals adenoma she can be colonoscopy in 5 years..
[2023-06-27 09:17] LABS: Glucose,Whole Blood 84 mg/dL (70-110)
[2023-06-27 09:27] VITALS: BP 143/73; PULSE 68; RESP 18
== END 2023-06-27 09:49 | disposition home or self-care (01) ==
LOC: ORWHC2ENDO 07:48
PROVIDERS: ATTEND Internal Medicine Gastroenterology
DX: Z12.11 Encounter for screening for malignant neoplasm of colon (principal); K57.30 Diverticulosis of large intestine without perforation or abscess without bleeding; K63.5 Polyp of colon; I10 Essential (primary) hypertension; E78.5 Hyperlipidemia, unspecified; E11.9 Type 2 diabetes mellitus without complications; G70.00 Myasthenia gravis without (acute) exacerbation; Z79.4 Long term (current) use of insulin; Z79.84 Long term (current) use of oral hypoglycemic drugs; Z79.899 Other long term (current) drug therapy; Z98.890 Other specified postprocedural states; Z86.010 Personal history of colon polyps
CPT/HCPCS: 88305; 45385; J2704

== ENCOUNTER → 2023-12-22 | Outpatient (CLI) | payer MEDICARE, BC ==
--- NOTE | 2023-12-25 09:47 | MM ---
Reason for Exam: Screening (asymptomatic). Last screening mammogram was performed 12 month(s) ago. Patient History: Menarche at age 10. First Full-Term at age 33. Late child-bearing (after 30). Postmenopausal. 11/29/2021, Benign Core Biopsy on the right side. Risk Values: Sylvia 5 year model risk: 3.1%. NCI Lifetime model risk: 9.7%. Prior Study Comparison: 11/15/2021 Bilateral Screening Mammogram, [facility]. 11/29/2021 Right Diagnostic Mammogram, [facility]. 12/13/2022 Bilateral MG screening mammo w CAD, [facility]. Tissue Density: The breasts are almost entirely fatty. Findings: Analyzed By CAD. Right breast: There is no suspicious group of microcalcifications or new suspicious mass. Left breast: There is no suspicious group of microcalcifications or new suspicious mass. Overall Assessment: Negative, BI-RAD 1 Management: Screening Mammogram of both breasts in [address] [facility] will attempt to contact patient to return for supplemental views and ultrasound if indicated. Patient should continue monthly self-breast exams. A clinical breast exam by your physician is recommended on an annual basis. This exam should not preclude additional follow-up of suspicious palpable abnormalities. Note on Sylvai scores and lifetime risk: 1. A Sylvia score greater than 3% is considered moderate risk. If this is the case, consider specialist referral to assess eligibility for a risk reducing agent. 2. If overall lifetime risk for the development of breast cancer is 20% or higher, the patient may qualify for future screening with alternating mammogram and breast MRI. Electronically signed and approved by: Reynold English DO
== END | disposition home or self-care (01) ==
LOC: RADMAMWWP 07:35
PROVIDERS: ATTEND Family Medicine
DX: Z12.31 Encounter for screening mammogram for malignant neoplasm of breast (principal); Z78.0 Asymptomatic menopausal state
CPT/HCPCS: 77067

== ENCOUNTER → 2025-01-06 | Outpatient (CLI) | payer MEDICARE, BC ==
--- NOTE | 2025-01-06 09:09 | MM ---
Reason for Exam: Screening (asymptomatic). Last mammogram was performed 1 year(s) and 1 month(s) ago. Patient History: Menarche at age 10. First Full-Term at age 33. Late child-bearing (after 30). Postmenopausal. 11/29/2021, Benign Core Biopsy on the right side. Risk Values: Sylvia 5 year model risk: 3.1%. NCI Lifetime model risk: 9.3%. Prior Study Comparison: 11/29/2021 Right Diagnostic Mammogram, [facility]. 12/13/2022 Bilateral MG screening mammo w CAD, [facility]. 12/22/2023 Bilateral MG screening mammo w CAD, [facility]. Tissue Density: There are scattered areas of fibroglandular density. Findings: Analyzed By CAD. Microclip subareolar right breast from prior biopsy. There is no suspicious group of microcalcifications or new suspicious mass in either breast. Overall Assessment: Negative, BI-RAD 1 Management: Screening Mammogram of both breasts in 1 year. See note below in regards to the patient's increased 5 year Sylvia score. Patient should continue monthly self-breast exams. A clinical breast exam by your physician is recommended on an annual basis. This exam should not preclude additional follow-up of suspicious palpable abnormalities. Note on Sylvia scores and lifetime risk: 1. A Sylvia score greater than 3% is considered moderate risk. If this is the case, consider specialist referral to assess eligibility for a risk reducing agent. 2. If overall lifetime risk for the development of breast cancer is 20% or higher, the patient may qualify for future screening with alternating mammogram and breast MRI. [facility], , 01/06/2025 9:06 AM. Electronically signed and approved by: Felisa Isaac M.D. Radiologist
== END | disposition home or self-care (01) ==
LOC: RADMAMWWP 06:58
PROVIDERS: ATTEND Family Medicine
DX: Z12.31 Encounter for screening mammogram for malignant neoplasm of breast (principal); R92.323 Mammographic fibroglandular density, bilateral breasts; Z78.0 Asymptomatic menopausal state
CPT/HCPCS: 77067